=== PATIENT | male | born 1955 | race Caucasian/White ===

== ENCOUNTER 2019-01-03 06:18 | Day surgery (SDC) | payer OTHER ==
[~2019-01-03] VITALS: Ht 172.7 cm; Wt 106.6 kg
[2019-01-03] VITALS (9 sets, daily range): BP systolic 75–142; BP diastolic 24–91
[2019-01-03 07:27] LABS: CREATININE 1.1 mg/dL (0.5-1.5); POTASSIUM 3.9 mmol/L (3.5-5.1)
[2019-01-03 07:33] LABS: BASOPHILS % (AUTO) 0.2 % (0.0-5.0); EOSINOPHILS % (AUTO) 0.4 % (0.0-8.0); HEMATOCRIT 36.9 % (42-54); LYMPHOCYTES % (AUTO) 7.6 % (21.0-51.0); MEAN CORPUSCULAR HEMOGLOBIN 27.1 pg (27.0-33.0); MEAN CORPUSCULAR HGB CONC 31.9 g/dL (32.0-36.0); MEAN CORPUSCULAR VOLUME 84.9 fL (79-99); MONOCYTES % (AUTO) 5.4 % (3.0-13.0); NEUTROPHILS % (AUTO) 86.4 % (40.0-77.0); PLATELET COUNT (AUTO) 282 K/uL (130-400); RED BLOOD CELL COUNT(AUTO) 4.35 MIL/uL (4.50-6.20); RED CELL DISTRIBUTION WIDTH 13.3 % (11.0-15.5)
[2019-01-03] MEDS ORDERED: TYL3 PO (07:55)
[2019-01-03] MEDS ORDERED: FURO20TA4 PO (07:55)
[2019-01-03] MEDS ORDERED: ENAL5TAB PO (07:55)
[2019-01-03] MEDS ORDERED: ATOR40TA69 PO (07:55)
[2019-01-03] MEDS ORDERED: APIX5TAB PO (07:55)
[2019-01-03] MEDS ORDERED: METF-444 PO (07:55)
[2019-01-03] MEDS ORDERED: EPHEDRINE SULFATE 50 MG/ML AMPULE ONE (08:12)
== END 2019-01-03 09:10 | disposition home or self-care (01) ==
LOC: ENDO 06:18 → DAH 06:18 → ENDO 09:10
PROVIDERS: ATTEND Surgery
DX: C18.7 Malignant neoplasm of sigmoid colon (principal); C78.7 Secondary malignant neoplasm of liver and intrahepatic bile duct; I11.0 Hypertensive heart disease with heart failure; I50.9 Heart failure, unspecified; F14.11 Cocaine abuse, in remission; E11.9 Type 2 diabetes mellitus without complications; E78.00 Pure hypercholesterolemia, unspecified; Z79.01 Long term (current) use of anticoagulants; Z79.899 Other long term (current) drug therapy; Z79.84 Long term (current) use of oral hypoglycemic drugs; Z72.89 Other problems related to lifestyle; F15.90 Other stimulant use, unspecified, uncomplicated; Z83.3 Family history of diabetes mellitus; Z82.49 Family history of ischemic heart disease and other diseases of the circulatory system
CPT/HCPCS: 36415; 45380; 80048; 82948 ×2; 85025; 86316; 93005; J3490